=== PATIENT | male | born 1995 | race Caucasian/White ===

== ENCOUNTER 2021-03-29 13:12 | Emergency (ER) | payer OTHER ==
[2021-03-29 14:16] VITALS: TEMP 98.1
[2021-03-29] MEDS ORDERED: KETOROLAC 15 MG/ML 1 ML VIAL IVP STA (16:05)
[2021-03-29] MEDS ORDERED: ONDANSETRON 4 MG/2 ML VIAL IVP STA (16:05)
[2021-03-29 16:52] LABS: Basophils # (A) 0.1 k/uL (0-0.2); Basophils % (A) 1 %; Eosinophils # (A) 0.4 k/uL (0-0.7); Eosinophils % (A) 6 %; HCT 44.1 % (39.0-53.0); HGB 14.8 gm/dL (13.0-17.5); Lymphocytes # (A) 2.2 k/uL (1.0-4.8); Lymphocytes % (A) 34 %; MCH 31.2 pg (25.0-35.0); MCHC 33.6 g/dL (31.0-37.0); MCV 92.9 fL (80.0-100.0); Mean Platelet Volume 7.8; Monocytes # (A) 0.5 k/uL (0-1.0); Monocytes % (A) 7 %; Neutrophils # (A) 3.4 k/uL (1.3-7.7); Neutrophils % (A) 51 %; Platelet Count 260 k/uL (150-450); RBC 4.75 m/uL (4.30-5.90); WBC 6.6 k/uL (3.8-10.6)
[2021-03-29 16:57] LABS: Appearance,Urine Cloudy (Clear); Bilirubin,Urine Negative (Negative); Blood,Urine Large (Negative); Color,Urine Red; Glucose,Urine (UA) Negative (Negative); Ketones,Urine Negative (Negative); Leukocyte Esterase,Urine Small (Negative); Nitrite,Urine Negative (Negative); Protein,Urine 1+ (Negative); RBC,Urine >182 /hpf (0-5); Specific Gravity,Urine 1.021 (1.001-1.035); Urobilinogen,Urine <2.0 mg/dL (<2.0); WBC,Urine 12 /hpf (0-5)
[2021-03-29 17:06] LABS: ALT 17 U/L (4-49); AST 22 U/L (17-59); African American GFR (CKD) >90 (>60 ml/min/1.73 sqM); Albumin 4.1 g/dL (3.5-5.0); Alkaline Phosphatase 72 U/L (38-126); Anion Gap 8 mmol/L; Blood Urea Nitrogen 13 mg/dL (9-20); Calcium 9.4 mg/dL (8.4-10.2); Carbon Dioxide 25 mmol/L (22-30); Chloride 107 mmol/L (98-107); Glucose 95 mg/dL (74-99); Lipase 97 U/L (23-300); Non-African American GFR(CKD) >90 (>60 ml/min/1.73 sqM); Potassium 4.1 mmol/L (3.5-5.1); Sodium 140 mmol/L (137-145); Total Bilirubin 1.2 mg/dL (0.2-1.3); Total Protein 6.8 g/dL (6.3-8.2)
--- NOTE | 2021-03-29 17:47 | CT ---
EXAMINATION TYPE: CT abdomen pelvis wo con DATE OF EXAM: 03/29/2021 COMPARISON: None INDICATION: Left flank pain. DLP: 452.5 mGycm, Automated exposure control for dose reduction was used. CONTRAST: 0 mL of Isovue 300. Study performed without Oral Contrast TECHNIQUE: Axial images were obtained from above the diaphragm to the pubic rami in the axial plane a t 5 mm thick sections. Reconstructed images are reviewed on the computer in the coronal plane. FINDINGS: Limited CT sections are obtained the lung bases. The lung bases are clear. CT ABDOMEN: Liver: Normal Spleen: Normal Pancreas: Normal Adrenal glands: The adrenal glands are normal. Gallbladder: Normal Kidneys: No masses are evident. No hydronephrosis is present. No cysts are present. There is a 0.7 cm calcification in the mid left kidney renal hydronephrosis is evident. Couple of punctate calcific ations are within the right kidney, example image series 201 image 48 0.3 cm calcification. No obstru cting renal stones are evident. No hydronephrosis or hydroureter is evident. Aorta: Normal Inferior vena cava: Normal. CT PELVIS: Loops of bowel within the abdomen and pelvis are normal. There are loops of bowel which are incom pletely distended or lack oral contrast limiting their evaluation. Appendix: Appendicoliths are likely present in the nondilated appendix. Urinary bladder: Normal. Genitourinary structures: Prostate appears normal Osseous structures: No suspicious lytic or sclerotic lesions. IMPRESSIONS: 1. Bilateral nonobstructing renal stones 2. Suspected appendicoliths within a normal-appearing appendix.
[2021-03-29 18:13] VITALS: BP 117/71; PULSE 63; RESP 16
--- NOTE | 2021-03-29 18:16 | ED ---
Abdominal Pain HPI - General Chief Complaint: Abdominal Pain Stated Complaint: kidney stone Source: patient Mode of arrival: ambulatory Limitations: no limitations - History of Present Illness Initial Comments: 21-year-old male with past history of nephrolithiasis presents to the emergency department with reported left-sided flank pain. Patient states that he has had a history of 2 previous kidney stones, both of which had to be extracted by a urologist out of [place]. He also had surgery 12 years ago on his left kidney to "fix a vein on his left kidney". He has a known left-sided renal stone. States that he has not had any pain since January. Pain began in his left flank radiating around to his left groin beginning yesterday. He has not taken any medications at home for his pain. Denies any fevers or chills. No hematuria, dysuria or difficult voiding. No changes in his bowel habits. Patient is concerned that his stone is now moving and presents emergency room for evaluation. No other alleviating, precipitating or modifying factors - Related Data Previous Rx's Medication Instructions Recorded Ketorolac [Toradol] 10 mg PO Q8HR #15 tab 03/29/21 Ondansetron Odt [Zofran Odt] 4 mg PO Q8HR PRN #10 tab 03/29/21 Allergies Allergy/AdvReac Type Severity Reaction Status Date / Time No Known Allergies Allergy Verified 03/29/21 17:26 Review of Systems ROS Statement: Those systems with pertinent positive or pertinent negative responses have been documented in the HPI. ROS Other: All systems not noted in ROS Statement are negative. Past Medical History Additional Past Medical History / Comment(s): kidney stones History of Any Multi-Drug Resistant Organisms: None Reported, MRSA MDRO Source:: abdominal Additional Past Surgical History / Comment(s): L sided kidney surgery Smoking Status: Current every day smoker Past Alcohol Use History: None Reported Past Drug Use History: None Reported General Exam Limitations: no limitations Course Vital Signs 03/29/21 03/29/21 14:12 18:12 Temperature 98.1 F Pulse Rate 71 63 Respiratory 18 16 Rate Blood Pressure 134/91 117/71 O2 Sat by Pulse 97 97 Oximetry Medical Decision Making - Medical Decision Making Upon arrival patient is placed into room 20. A thorough history and physical exam is performed. IV is established the patient is given a dose of Toradol and Zofran. Laboratory studies were conducted and patient provides a urine sample. Laboratory studies are reviewed. Urinalysis demonstrates small leukocyte esterase, greater than 182 red blood cells and large blood. CT of the abdomen and pelvis is performed without contrast which demonstrates a 7 mm calcination in the mid left kidney. The patient is reevaluated and states that his pain is controlled at this time. He will be discharged home and is instructed to follow up with urology for his left-sided ureteral stone. The patient is a new or worsening symptoms to include fevers, chills or inability to urinate he needs to return to the emergency room. Patient agreed to this plan and was discharged home in stable condition - Lab Data Result diagrams: 03/29/21 16:46 03/29/21 16:46 Lab Results 03/29/21 03/29/21 03/29/21 Range/Units 16:46 16:46 16:46 WBC 6.6 (3.8-10.6) k/uL RBC 4.75 (4.30-5.90) m/uL Hgb 14.8 (13.0-17.5) gm/dL Hct 44.1 (39.0-53.0) % MCV 92.9 (80.0-100.0) fL MCH 31.2 (25.0-35.0) pg MCHC 33.6 (31.0-37.0) g/dL RDW 12.0 (11.5-15.5) % Plt Count 260 (150-450) k/uL MPV 7.8 Neutrophils % 51 % Lymphocytes % 34 % Monocytes % 7 % Eosinophils % 6 % Basophils % 1 % Neutrophils # 3.4 (1.3-7.7) k/uL Lymphocytes # 2.2 (1.0-4.8) k/uL Monocytes # 0.5 (0-1.0) k/uL Eosinophils # 0.4 (0-0.7) k/uL Basophils # 0.1 (0-0.2) k/uL Sodium 140 (137-145) mmol/L Potassium 4.1 (3.5-5.1) mmol/L Chloride 107 (98-107) mmol/L Carbon Dioxide 25 (22-30) mmol/L Anion Gap 8 mmol/L BUN 13 (9-20) mg/dL Creatinine 0.93 (0.66-1.25) mg/dL Est GFR (CKD-EPI)AfAm >90 (>60 ml/min/1.73 sqM) Est GFR (CKD-EPI)NonAf >90 (>60 ml/min/1.73 sqM) Glucose 95 (74-99) mg/dL Calcium 9.4 (8.4-10.2) mg/dL Total Bilirubin 1.2 (0.2-1.3) mg/dL AST 22 (17-59) U/L ALT 17 (4-49) U/L Alkaline Phosphatase 72 (38-126) U/L Total Protein 6.8 (6.3-8.2) g/dL Albumin 4.1 (3.5-5.0) g/dL Lipase 97 (23-300) U/L Urine Color Red Urine Appearance Cloudy (Clear) Urine pH 7.0 (5.0-8.0) Ur Specific Ava 1.021 (1.001-1.035) Urine Protein 1+ H (Negative) Urine Glucose (UA) Negative (Negative) Urine Ketones Negative (Negative) Urine Blood Large H (Negative) Urine Nitrite Negative (Negative) Urine Bilirubin Negative (Negative) Urine Urobilinogen <2.0 (<2.0) mg/dL Ur Leukocyte Esterase Small H (Negative) Urine RBC >182 H (0-5) /hpf Urine WBC 12 H (0-5) /hpf Disposition Clinical Impression: Renal calculus, left, Hematuria Disposition: HOME SELF-CARE Condition: Stable Instructions (If sedation given, give patient instructions): Kidney Stones (ED) Additional Instructions: Please follow up with the urologist for your left kidney stone. Return to the emergency room for any new or worsening symptoms Prescriptions: Ketorolac [Toradol] 10 mg PO Q8HR #15 tab Ondansetron Odt [Zofran Odt] 4 mg PO Q8HR PRN #10 tab PRN Reason: Nausea Is patient prescribed a controlled substance at d/c from ED?: No Referrals: Veronica Joseph MD [Primary Care Provider] - 1-2 days Krishna Cabrera MD [STAFF PHYSICIAN] - 1-2 days Time of Disposition: 18:15
== END 2021-03-29 18:38 | disposition home or self-care (01) ==
LOC: EC 13:12
DX: N20.0 Calculus of kidney (principal); R31.9 Hematuria, unspecified; F17.200 Nicotine dependence, unspecified, uncomplicated
CPT/HCPCS: 99284; 96374; 96375; 36415; 80053; 83690; 85025; 81001; 87086; 74176; J2405; J1885